=== PATIENT | female | born 1930 | race Caucasian/White ===

== ENCOUNTER → 2017-04-04 | Outpatient (CLI) | payer MEDICARE ==
[~2017-04-04] MED LIST: ACETAMINOPHEN500 MG PO; AMITIZA24 MCG PO; ASPIRIN EC81 MG; ATIVAN0.5 MG/1 M PO; B COMPLEX1 EACH PO; B-121000 MCG PO; CARAFATE SU100 MG/ML PO; CELEXA40 MG PO; CENTRUM SILVER1 TAB PO; CLEOCIN150 MG PO; COLCHICINE0.6 MG PO; CRESTOR10 MG PO; CYMBALTA60 MG PO; DIOVAN320 MG PO; DOCU PO; DULCOLAX5 MG PO; DURAGESIC 12 M12 MCG TRANS; DURAGESIC 25MC25 MCG TRANS; ECHINACEA167 MG PO; FIBERCON1 TAB PO; FOLBIC TABLET1 EACH PO; GABAPENTIN100 MG PO; GARLIC1000 MG PO; L-LYSINE500 M1 PO; LIDODERM 5% P1 PATCH TOP; LISINOPRIL-HCT1 EAC1 PO; MILK OF MA400 MG/5 M PO; NORCO 10-325 T1 EACH PO; NORCO 5-325 MG1 TAB PO; NORVASC10 MG PO; OSCAL + D500 MG PO; PERCOCET 5-3251 EACH PO; PLAVIX75 MG PO; PRILOSEC40 MG PO; PROBIOTIC1 EAC1 PO; REQUIP2 MG PO; SKELAXIN800 MG PO; VITAMIN C1000 MG PO; VITAMIN C500 M1 PO; XANAX0.5 MG PO; ZANTAC (NON-FO150 MG PO; ZYLOPRIM100 MG PO
== END | disposition disaster alternative care site (69) ==
LOC: GAMB 12:49
DX: S09.93XA Unspecified injury of face, initial encounter (principal); H57.12 Ocular pain, left eye; S01.81XA Laceration without foreign body of other part of head, initial encounter; Z79.899 Other long term (current) drug therapy; Z79.891 Long term (current) use of opiate analgesic; Z79.2 Long term (current) use of antibiotics; Z88.0 Allergy status to penicillin; W19.XXXA Unspecified fall, initial encounter
CPT/HCPCS: A0425; A0429